=== PATIENT | female | born 1985 | race Caucasian/White ===

== ENCOUNTER 2021-09-28 00:32 | Emergency (ER) | payer OTHER ==
[~2021-09-28] VITALS: Ht 162.6 cm; Wt 55.8 kg
[~2021-09-28 00:32] MED LIST: NKA; PRENATAL TABLE1 EAC1 PO
== END 2021-09-28 03:13 | disposition home or self-care (01) ==
LOC: ER 00:32
DX: K29.70 Gastritis, unspecified, without bleeding (principal)